=== PATIENT | male | born 2000 | race Caucasian/White ===

== ENCOUNTER 2023-01-01 10:39 | Outpatient (CLI) | payer OTHER | END 2023-01-01 10:40 | disposition home or self-care (01) | LOC: BICRAD 10:39 | PROVIDERS: ATTEND Family Medicine | DX: M54.50 Low back pain, unspecified (principal); M41.9 Scoliosis, unspecified | CPT/HCPCS: 72100 ==

== ENCOUNTER 2023-01-13 11:40 | Outpatient (CLI) | payer OTHER | END 2023-01-13 11:41 | disposition home or self-care (01) | LOC: SCSMRI 11:40 | PROVIDERS: ATTEND Family Medicine | DX: M24.812 Other specific joint derangements of left shoulder, not elsewhere classified (principal); S46.912A Strain of unspecified muscle, fascia and tendon at shoulder and upper arm level, left arm, initial encounter ==

== ENCOUNTER 2024-08-16 09:52 | Outpatient (CLI) | payer OTHER | END 2024-08-16 09:53 | disposition home or self-care (01) | LOC: SCSMRI 09:52 | PROVIDERS: ATTEND Family Medicine | DX: M54.2 Cervicalgia (principal); R59.0 Localized enlarged lymph nodes | CPT/HCPCS: 72141 ==